=== PATIENT | female | born 1935 | race Caucasian/White ===

== ENCOUNTER 2016-11-26 09:09 | Outpatient (CLI) | payer MEDICARE, OTHER | END 2016-11-26 09:10 | disposition home or self-care (01) | DX: I50.9 Heart failure, unspecified (principal); E78.5 Hyperlipidemia, unspecified; I10 Essential (primary) hypertension ==

== ENCOUNTER 2016-12-15 11:56 | Outpatient (CLI) | payer MEDICARE, OTHER | END 2016-12-15 11:57 | disposition home or self-care (01) | DX: M47.816 Spondylosis without myelopathy or radiculopathy, lumbar region (principal); M51.26 Other intervertebral disc displacement, lumbar region; M43.16 Spondylolisthesis, lumbar region ==

== ENCOUNTER 2017-07-12 09:46 | Outpatient (CLI) | payer MEDICARE, OTHER ==
[2017-07-12 18:26] LABS: ALBUMIN/GLOBULIN RATIO 1.3 (1.0-2.2); BILIRUBIN,TOTAL 0.6 mg/dL (0.2-1.0); BUN - BLOOD UREA NITROGEN 43 mg/dL (6-20); CALCIUM 9.6 mg/dL (8.5-10.3); CARBON DIOXIDE - CO2 27 mmol/L (21-32); CHLORIDE 104 mmol/L (101-111); CHOL/HDL RATIO 5.2 (<4.4); CHOLESTEROL 277 mg/dL; CREATININE 1.4 mg/dL (0.4-1.0); GFR - MDRD 36 (>89); GLUCOSE 102 mg/dL (70-100); HDL CHOLESTEROL 53 mg/dL; LDL/HDL RATIO 3.7 (<4.4); SODIUM 140 mmol/L (135-145); TOTAL PROTEIN 7.2 g/dL (6.7-8.2); TRIGLYCERIDES 149 mg/dL; VLDL CHOLESTEROL 30 mg/dL
[2017-07-12 18:40] LABS: HEMOGLOBIN A1C 0.49 g/dL
== END 2017-07-12 09:47 | disposition home or self-care (01) ==
LOC: LAB.F 09:46
PROVIDERS: ATTEND Family Medicine
DX: R73.01 Impaired fasting glucose (principal); I50.9 Heart failure, unspecified; E78.5 Hyperlipidemia, unspecified; I10 Essential (primary) hypertension
CPT/HCPCS: 36415; 80053; 80061; 83036

== ENCOUNTER 2017-09-21 18:00 | Outpatient (CLI) | payer MEDICARE, OTHER | END 2017-09-21 18:01 | disposition EMS.NT | LOC: EMS 18:00 | PROVIDERS: ATTEND Surgery | DX: M79.646 Pain in unspecified finger(s) (principal); W18.30XA Fall on same level, unspecified, initial encounter; Y92.009 Unspecified place in unspecified non-institutional (private) residence as the place of occurrence of the external cause ==

== ENCOUNTER 2017-10-19 13:07 | Outpatient (CLI) | payer MEDICARE, OTHER ==
--- NOTE | 2017-10-20 17:59 | XRAY Report ---
DATE OF SERVICE: 10/19/2017 LEG LENGTH STUDY: 10/19/2017 CLINICAL INDICATION: Back pain. AP scanogram of the lower extremities was performed. The right upper leg measures 47.6 cm from acetabulum to tibial plateau, and the left upper leg measures 47.6 cm. The right lower leg, from tibial plateau to talar dome, measures 37.2 cm, and the left leg measures 36.4 cm. IMPRESSION: Approximately 1 cm leg length discrepancy in the lower legs, left shorter than right. TD: 10/20/2017 18:58
== END 2017-10-19 13:08 | disposition home or self-care (01) ==
LOC: DI 13:07
PROVIDERS: ATTEND Podiatrist
DX: M21.70 Unequal limb length (acquired), unspecified site (principal)
CPT/HCPCS: 77073

== ENCOUNTER 2018-07-15 15:33 | Outpatient (CLI) | payer MEDICARE, OTHER | END 2018-07-15 15:34 | disposition critical access hospital (66) | LOC: EMS 15:33 | PROVIDERS: ATTEND Surgery | DX: R53.1 Weakness (principal) | CPT/HCPCS: A0425; A0429 ==

== ENCOUNTER 2018-07-15 16:14 | Observation (INO) | payer MEDICARE, OTHER ==
--- NOTE | 2018-07-15 16:48 | ED Physician Documentation ---
PD HPI FOCAL NEURO - Stated complaint Stated Complaint: R L WEAKNESS/ NUMBNESS - Chief complaint Chief Complaint: Ext Problem - History obtained from History obtained from: Patient - History of Present Illness Timing - onset: Today Timing - duration: Days (1) Severity of deficit: Moderate Weakness: Leg, Right Associated symptoms: No: Headache, Nausea / vomiting, Seizure, Syncope, Fall, Head injury, Chest pain, Neck pain, Back pain Contributing factors: positive: Anticoagulated (h/o DVTs and PE's) Baseline status: positive: A&OX3, ambulatory, indep Similar symptoms before: Has not had sx before Recently seen: Not recently seen - Additional information Additional information: Patient states approximately 5 hours prior to arrival she felt her right leg not working as well as usual and had difficulty walking on it. States it has not improved and she is unable to lift the leg. No other complaints. Review of Systems Ten Systems: 10 systems reviewed and negative Constitutional: denies: Fever, Chills Ears: denies: Ear pain Throat: denies: Sore throat Cardiac: denies: Chest pain / pressure Respiratory: denies: Dyspnea, Cough, Wheezing GI: denies: Abdominal Pain, Nausea, Vomiting, Diarrhea Skin: denies: Rash Musculoskeletal: denies: Neck pain, Back pain Neurologic: denies: Numbness, Confused, Altered mental status, Headache PD PAST MEDICAL HISTORY - Past Medical History Cardiovascular: Congestive heart failure, Hypertension - Past Surgical History Ortho: Hip replacement, Knee replacement, Carpal Tunnel surgery - Present Medications Home Medications: Ambulatory Orders Medication Instructions Recorded Confirmed Acetaminophen 500 - 1,000 mg PO DAILY 02/04/16 07/15/18 Calcium Carbonate/Vitamin D3 1 tab PO DAILY 02/04/16 07/15/18 [Calcium 600 + Vit D3 400 Tab] Escitalopram [Lexapro] 10 mg PO DAILY 02/04/16 07/15/18 Furosemide [Lasix] 40 mg PO DAILY 02/04/16 07/15/18 Glucosam/Chondr-MSM#6/Manganes 1 cap PO BID 02/04/16 07/15/18 [Glucosamine-Chondroitin Sftgl] Losartan [Cozaar] 100 mg PO DAILY 02/04/16 07/15/18 Multivitamin [Multivitamins] 1 cap PO DAILY 02/04/16 07/15/18 Carvedilol 25 mg PO BID 07/15/18 07/15/18 - Allergies Allergies/Adverse Reactions: Allergies Allergy/AdvReac Type Severity Reaction Status Date / Time Penicillins Allergy Unknown Verified 07/15/18 16:24 vancomycin Allergy Unknown Verified 07/15/18 16:24 PD ED PE NORMAL - Vitals Vital signs reviewed: Yes - General General: Alert and oriented X 3, No acute distress - HEENT HEENT: Moist mucous membranes - Neck Neck: Supple, no meningeal sign - Cardiac Cardiac: RRR, Strong equal pulses - Respiratory Respiratory: No respiratory distress, Clear bilaterally - Abdomen Abdomen: Soft, Non tender, Non distended - Derm Derm: Warm and dry - Extremities Extremities: Other (1+ B LE edema) - Neuro Neuro: Alert and oriented X 3, 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, No sensory deficit, Normal speech - Psych Psych: Normal mood, Normal affect NIHSS - Time Time: 16:20 - Level of Consciousness Level of consciousness: (0) Alert, Keenly responsive LOC Questions: (0) Answers both Q's correct LOC Commands: (0) Performs both correctly - Gaze Best Gaze: (0) Normal - Visual Visual: (0) No loss - Facial Palsy Facial Palsy: (0) Normal, symmetrical movement - Motor Arms (both separate) Motor Arm (right): (0) No drift Motor Arm (left): (0) No drift - Motor Legs (both separate) Motor Leg (right): (2) Some effort against gravity Motor Leg (left): (0) No drift - Limb Ataxia Limb Ataxia: (0) Absent - Sensory Sensory: (0) Normal - Best Language Best Language: (0) No aphasia - Dysarthria Dysarthria: (0) Normal - Extinction and Inattention (formally neg Extinction and inattention: (0) No abnormality - Total Score/Results Total Score/Result: 2 Results - Vitals Vitals: Vital Signs - 24 hr 07/15/18 16:18 Temperature 36.6 C Heart Rate 66 Respiratory 14 Rate Blood Pressure 155/71 H O2 Saturation 96 Oxygen O2 Source Room air - EKG (time done) 1647 Rate: Rate (enter#) (65) Rhythm: NSR [place]: Normal Intervals: Normal MS QRS: Normal Ischemia: Normal ST segments - Rads (name of study) head CT Radiology: Prelim report reviewed, EMP read contemporaneously, See rad report (No acute intracranial abnormality) Duplex ultrasound right lower extremity Radiology: Prelim report reviewed, EMP read contemporaneously, See rad report (No DVT) PD MEDICAL DECISION MAKING - ED course Complexity details: reviewed results, re-evaluated patient, considered differential, d/w patient, d/w skin care consultant ED course: Patient is an 82-year-old female who presents to the emergency department with an inability to move the right leg. Concern for stroke. She is on Eliquis and was concerned of recurrent DVT, ultrasound is negative. Head CT is negative. No acute findings on laboratory testing. Discussed the case with Dr. Alvarenga, hospitalist who accepts. Will place her in observation for further evaluation and care. Possible TIA versus stroke? This document was made in part using voice recognition software. While efforts are made to proofread this document, sound alike and grammatical errors may occur. - Sepsis Event Vital Signs: Vital Signs - 24 hr 07/15/18 16:18 Temperature 36.6 C Heart Rate 66 Respiratory 14 Rate Blood Pressure 155/71 H O2 Saturation 96 Oxygen O2 Source Room air Departure - Departure Disposition: ED Place in Observation Clinical Impression: Right leg weakness Condition: Stable Discharge Date/Time: 07/15/18 20:50
[2018-07-15] MEDS ORDERED: IOPAMIDOL-300 100 ML VIAL ONE (16:52)
--- NOTE | 2018-07-15 17:16 | CT Report ---
Reason: RLE weakness Procedure Date: 07/15/2018 Accession Number: [id number] / [id number] Procedure: CT - Head W/O Stroke Protocol CPT Code: FULL RESULT: EXAM: CT HEAD EXAM DATE: 07/15/2018 05:06 PM. CLINICAL HISTORY: Right lower extremity weakness. Stroke protocol. COMPARISON: None. TECHNIQUE: Multiaxial CT images were obtained from the foramen magnum to the vertex. Reformats: Sagittal and coronal. IV contrast: None. In accordance with CT protocol optimization, one or more of the following dose reduction techniques were utilized for this exam: automated exposure control, adjustment of mA and/or KV based on patient size, or use of iterative reconstructive technique. FINDINGS: Parenchyma: No intraparenchymal hemorrhage. No evidence of mass, midline shift, or CT findings of acute infarction. Gutierrez-white differentiation is distinct. Extraaxial Spaces: Normal for age. No subdural or epidural collections identified. Ventricles: Normal in size and position. Sinuses and Orbits: Imaged paranasal sinuses, orbits, and mastoids show no significant abnormality. Bones: No evidence of fracture or calvarial defect. Other: None. IMPRESSION: Normal head CT. RADIA The call report notification system was initiated by Dr. Elmer Mckinney at 17:12 hrs on 07/15/18. The above findings were discussed with Supa Quintanilla by Dr. Elmer Mckinney at 17:15 hrs on 07/15/18.
[2018-07-15 17:38] LABS: BASOPHILS % (AUTO) 0.7 %; EOSINOPHILS # (AUTO) 0.2 10^3/uL (0.0-0.7); EOSINOPHILS % (AUTO) 2.5 %; HGB - HEMOGLOBIN 11.9 g/dL (12.0-16.0); LYMPHOCYTES # (AUTO) 1.6 10^3/uL (1.5-3.5); MEAN CORPUSCULAR HEMOGLOBIN 29.3 pg (27.0-31.0); MEAN CORPUSCULAR HGB CONC 33.7 g/dL (32.0-36.0); MEAN CORPUSCULAR VOLUME 86.9 fL (81.0-99.0); MEAN PLATELET VOLUME 7.1 fL (7.9-10.8); MONOCYTES # (AUTO) 0.7 10^3/uL (0.0-1.0); MONOCYTES % (AUTO) 9.2 %; NEUTROPHILS # (AUTO) 4.7 10^3/uL (1.5-6.6); NEUTROPHILS % (AUTO) 65.6 %; PLT - PLATELET COUNT 247 10^3/uL (130-450); RED BLOOD COUNT 4.05 10^6/uL (4.20-5.40); RED CELL DISTRIBUTION WIDTH 14.1 % (12.0-15.0); WHITE BLOOD COUNT 7.2 x10^3/uL (4.8-10.8)
[2018-07-15 17:51] LABS: ALBUMIN 3.8 g/dL (3.2-5.5); ALBUMIN/GLOBULIN RATIO 1.1 (1.0-2.2); BILIRUBIN,TOTAL 0.6 mg/dL (0.2-1.0); CALCIUM 9.1 mg/dL (8.5-10.3); CREATININE 1.4 mg/dL (0.4-1.0); TOTAL PROTEIN 7.3 g/dL (6.7-8.2)
--- NOTE | 2018-07-15 19:05 | Ultrasound Report ---
Reason: R LE swelling, h/o DVT Procedure Date: 07/15/2018 Accession Number: [id number] / [id number] Procedure: US - Duplex Ext Veins Right CPT Code: FULL RESULT: EXAM: RIGHT LOWER EXTREMITY VENOUS ULTRASOUND EXAM DATE: 07/15/2018 06:48 PM. CLINICAL HISTORY: Right lower extremity swelling, history of DVT. COMPARISON: Duplex extremity veins, right 10/11/2015 10:15 AM. TECHNIQUE: Real-time sonographic vascular imaging was performed by the vehicle insurance agent through the lower extremity utilizing both color-flow and Doppler spectral analysis. Multiple entry level sales representative static images were saved for review. FINDINGS: Common Femoral Vein (CFV): Normal. CFV-GSV Junction: Normal. Profunda Femoral Vein (PFV): Normal. Femoral Vein (FV) Prox: Normal. Femoral Vein (FV) Mid: Normal. Femoral Vein (FV) Dist: Normal. Popliteal Vein: Normal. Posterior Tibial Veins: Normal. Peroneal Veins: Normal. Contralateral Side CFV: Normal. Other: Mild edema. IMPRESSION: No evidence for deep venous thrombosis. RADIA
[2018-07-15] MEDS ORDERED: IBUPROFEN 600 MG TABLET PO PRN (20:04)
[2018-07-15] MEDS ORDERED: ONDANSETRON 4 MG/2 ML VIAL IVP PRN (20:04)
[2018-07-15] MEDS ORDERED: SODIUM CHLORIDE FLUSH 0.9% 10 ML SYRINGE IVP PRN (20:04)
--- NOTE | 2018-07-15 20:16 | HISTORY & PHYSICAL EXAMINATION ---
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 The patient states that her weakness has progressed over the last month. She states that she has been feeling weaker and weaker and having increasing trouble ge tting out of her chair. The patient states that she uses a walker at home and previously she was able to get up out of a chair without much assistance and get up and use her walker. She states that over the last month slowly she is gotten to a point where she is having to put her chair up against a wall to get increased leverage to help herself up into a walker. The patient states that things came to ahead today at around 11 AM when she states that her right leg was extremely weak and painful. She states that she was able to get up and use the walker but felt as though she was going to collapse onto her right side. She states that she has chronic low back and neck pain from arthritis. She states that the right leg was so weak she could not even lifted off the ground and finally she decided to come into the emergency department. The patient denies any other focal neurologic deficits. She denies any numbness or tingling in her right leg. She does admit to pain in the right leg which has been worsening throughout the day today. The patient also states that she has bilateral lower extremity edema. Patient denies any headaches, blurred vision, runny nose, sore throat, nasal c ongestion, difficulty swallowing, chest pain, cough, fevers, chills, palpitations, shortness of air, orthopnea, PND, abdominal pain, nausea, vomiting, diarrhea, constipation, urinary urgency, urinary frequency, dysuria, hair loss, skin rashes, polyuria, polydipsia, night sweats, difficulties with he r speech, difficulty swallowing or any facial droop. On presentation to the emergency department the patient was afebrile and hypertensive with blood pressure of 155/71 and otherwise had no respiratory distress. The patient states that her blood pressure has been elevated over the last few weeks as she has had increasing pain at home. The patient states that she takes Tylenol for pain at home as she has been told not to take any NSAIDs due to being on Eliquis. She states that Tylenol is just not cutting it for her pain anymore. The patient did undergo routine labs in the emergency department which showed a mildly elevated INR of 1.5 and a creatinine of 1.4 which is near her baseline. The patient had a negative UA and unremarkable CBC. The patient did undergo a venous duplex of the right lower extremity given her recent history of DVT and swelling in that right leg with pain. The patient's Doppler ultrasound showed no evidence of DVT. The patient also underwent a CT of her head given the localized right lower extremity weakness which was a normal CT head. Given the patient's multiple risk factors for stroke including obesity, hypertension, age and hyperlipidemia the patient was placed in observation for further workup for possible stroke. History - Past Medical History Cardiovascular: reports: Congestive heart failure, Hypertension, High cholesterol, Other (Morbid obesity) Respiratory: reports: Other (Pulmonary embolism) : reports: Renal insuffiency (Chronic kidney disease stage III) Psych: reports: Depression, Anxiety Musculoskeletal: reports: Osteoarthritis, Other (DVT bilateral lower extremiti es) MRSA Hx?: No Other Past Medical History: blood clots in legs and lungs in March 2018 - Past Surgical History Ortho: reports: Hip replacement, Knee replacement, Carpal Tunnel surgery - Family & Social History Family History: Mother: , CVA/TIA, Father: , Cancer (Bladder cancer) Living arrangement: At home Living Situation: With spouse/s.o., With family Social History Notes: The patient lives in [place], [place] with her and her daughter who was recently come over from [place], [place] to help out with her mom and dad given their declining health. The patient is originally from [place], [place] and worked as a domestic travel consultant. She raised 2 children. Her and her moved out to the [place] area about 50 years ago and moved to [facility] 29 years ago. She has never been a smoker, does not drink alcohol and denies any illicit drug use. - POLST Patient has POLST: No POLST Status: Full Code Meds/Allgy - Home Medications Home Medications: Ambulatory Orders Medication Instructions Recorded Confirmed Acetaminophen 500 - 1,000 mg PO DAILY 02/04/16 07/15/18 Calcium Carbonate/Vitamin D3 1 tab PO DAILY 02/04/16 07/15/18 [Calcium 600 + Vit D3 400 Tab] Escitalopram [Lexapro] 10 mg PO DAILY 02/04/16 07/15/18 Furosemide [Lasix] 40 mg PO DAILY 02/04/16 07/15/18 Glucosam/Chondr-MSM#6/Manganes 1 cap PO BID 02/04/16 07/15/18 [Glucosamine-Chondroitin Sftgl] Losartan [Cozaar] 100 mg PO DAILY 02/04/16 07/15/18 Multivitamin [Multivitamins] 1 cap PO DAILY 02/04/16 07/15/18 Carvedilol 25 mg PO BID 07/15/18 07/15/18 - Allergies Allergies/Adverse Reactions: Allergies Allergy/AdvReac Type Severity Reaction Status Date / Time Penicillins Allergy Unknown Verified 07/15/18 16:24 vancomycin Allergy Unknown Verified 07/15/18 16:24 Review of Systems - Other Findings Other Findings: A comprehensive review of systems was performed the pertinent positives and negatives are stated above in the HPI and the remainder of the review of systems is negative. Prior Level of Functionality: Patient uses a walker at home but has been having more and more difficulty standing up from her seated position to get up to use the walker. She states her does most of the reimbursement specialist and her daughter helps with cleaning up the house. She is very limited in her activities of daily living but does bathe herself as she has a shower seat. She states that she has had multiple falls over the last year. She states that she did have a setback when she had her DVT and PE in March 2018 because she was told to decrease her activity as she was at risk of having further pulmonary emboli. The patient states that since then she is never been able to get as active as she normally is. She states that she is also gained a significant amount of weight. Exam - Vital Signs Reviewed Vital Signs: Yes Vital Signs: Vital Signs x48h Temp Pulse Resp BP Pulse Ox 07/15/18 20:11 73 18 163/57 H 97 10/06/18 18:49 71 16 167/69 H 98 07/15/18 16:18 36.6 C 66 14 155/71 H 96 - Physical Exam General Appearance: positive: No acute distress, Alert, Anxious Eyes Bilateral: positive: Normal inspection, PERRL, EOMI, No lid inflammation ENT: positive: ENT inspection nml, Pharynx nml, No signs of dehydration. negative: Purulent nasal drainage, Pharyngeal erythema, Oral lesions Neck: positive: Nml inspection, Thyroid nml, No JVD, Trachea midline. negative: Thyromegaly, Lymphadenopathy (R), Lymphadenopathy (L), Stiff neck, Carotid bruit, Tracheal deviation Respiratory: positive: Chest non-tender, No respiratory distress, Breath sounds nml. negative: Wheezes, Rales, Rhonchi Cardiovascular: positive: Regular rate & rhythm, No murmur, No gallop Peripheral Pulses: positive: 2+ Abdomen: positive: Non-tender, No organomegaly, Nml bowel sounds, No distention. negative: Guarding, Rebound, Hepatomegaly Back: positive: Nml inspection. negative: CVA tenderness (R), CVA tenderness (L) Skin: positive: Color nml, No rash, Warm, Dry. negative: Cyanosis, Pallor Extremities: positive: Non-tender, Full ROM, Nml appearance, Pedal edema (Bilateral lower extremity edema up to the knees) Neurologic/Psychiatric: positive: Oriented x3, CN's nml (2-12), Sensation nml, Mood/affect nml, Weakness (The patient has weakness in the right lower extremity with difficulty raising the leg against gravity. Her left lower extremity her strength is 5 out of 5 in the right lower extremity strength is 3 out of 5.). negative: Facial droop, Slurred/abnml speech Conclusion/Plan - Problem List (1) Right leg weakness Conclusion/Plan: Patient presented with right leg weakness. According to the patient this has been getting progressively worse over the last month. To the point today where she stated it felt as though she was trying to lift a concrete block when she was trying to move her foot while using a walker. The patient was able to stand up with the strength of her right leg however when lying down on a bed she is unable to lift her leg off the bed. There is a significant difference in the strength of her left leg versus her right leg. The patient has no other focal neurologic deficits. Given the patient's history of arthritis and chronic low back pain it is very likely that this weakness is neuropathic weakness. The patient is also having pain in that right leg which also goes with a neuropathic process. It is much less likely that the patient has had a stroke given that it is a localized weakness it appears to be localized to specific muscle group not loss of motor function of the entire leg. The patient however does have multiple risk factors for a stroke including her age, hypertension, obesity and hyperlipidemia. Given these risk factors it is felt that patient should undergo observation and workup for stroke. CT head was negative. Plan: Aspirin Lipitor CTA head and neck MRI brain Echo Lipid profile Tele Neurochecks PT eval Start patient on gabapentin tonight for neuropathic weakness and pain and monitor symptoms (2) History of pulmonary embolism Conclusion/Plan: Patient is a history of pulmonary embolism in March 2018 and is currently on Eliquis. Patient will be continued on her home dose of Eliquis at this time as she does not appear to be having any bleed on her CT head. (3) Hypertension Conclusion/Plan: The patient has a history of hypertension and blood pressure has been elevated for the last few weeks in conjunction with her having increasing pain in her right leg. The patient's blood pressure is elevated on presentation to the emergency department. The patient will be continued on her home antihypertensive medications, we will continue to monitor her blood pressure and titrate medications as needed. Qualifiers: Hypertension type: essential hypertension Qualified Code(s): I10 - Essential (primary) hypertension (4) Hyperlipidemia Conclusion/Plan: The patient has a history of hyperlipidemia and has not been able to tolerate statins in the past. Patient is willing to start a statin while she is hospitalized here and were working her up for possible stroke. We will check a lipid profile in the patient in the morning. Qualifiers: Hyperlipidemia type: unspecified Qualified Code(s): E78.5 - Hyperlipidemia, unspecified (5) CKD (chronic kidney disease) stage 3, GFR 30-59 ml/min Conclusion/Plan: Patient has chronic kidney disease stage III. Her creatinine is 1.4 on presentation which is near her baseline. Patient was initially given IV fluids but then stated she has a history of congestive heart failure therefore IV fluids were stopped. We will continue to monitor her creatinine Avoid nephrotoxic agents. We will recheck her creatinine in the morning and decide on whether to do a CT angiogram of her head and neck are not. (6) Osteoarthritis Conclusion/Plan: The patient has osteoarthritis of multiple joints but currently her pain is mostly in her neck and lower back. The patient takes Tylenol at home for the pain. The patient is not able to take NSAIDs due to being on Eliquis. For the time being we will continue the patient on Tylenol and we will be adding gabapentin for possible neuropathic pain. Patient will be seen by physical therapy in the morning and will be recommended for exercises. The patient appears to be quite debilitated and may benefit from home physical therapy. Qualifiers: Osteoarthritis location: multiple joints - Lab Results Lab results reviewed: Yes Fish Bones: 07/15/18 17:07/15/18: Other Lab Results: Laboratory Results WBC 7.2 x10^3/uL (4.8-10.8) 07/15/18: RBC 4.05 10^6/uL (4.20-5.40) L 07/15/18: Hgb 11.9 g/dL (12.0-16.0) L 07/15/18 17: Hct 35.2 % (37.0-47.0) L 07/15/18: MCV 86.9 fL (81.0-99.0) 07/15/18: MCH 29.3 pg (27.0-31.0) 07/15/18 17: MCHC 33.7 g/dL (32.0-36.0) 07/15/18: RDW 14.1 % (12.0-15.0) 07/15/18: Plt Count 247 10^3/uL (130-450) 07/15/18: MPV 7.1 fL (7.9-10.8) L 07/15/18: Neut # (Auto) 4.7 10^3/uL (1.5-6.6) 07/15/18: Lymph # (Auto) 1.6 10^3/uL (1.5-3.5) 07/15/18 17: [place] # (Auto) 0.7 10^3/uL (0.0-1.0) 10/06/18 17:27 Eos # (Auto) 0.2 10^3/uL (0.0-0.7) 07/15/18 17:27 Baso # (Auto) 0.0 10^3/uL (0.0-0.1) 07/15/18 17:27 Absolute Nucleated RBC 0.01 x10^3/uL 07/15/18 17:27 Nucleated RBC % 0.1 /100WBC 07/15/18 17:27 PT 16.2 secs (9.9-12.6) H 07/15/18 20:38 INR 1.5 (0.8-1.2) H 07/15/18 20:38 Sodium 140 mmol/L (135-145) 07/15/18 17:27 Potassium 3.8 mmol/L (3.5-5.0) 07/15/18 17:27 Chloride 100 mmol/L (101-111) L 07/15/18 17:27 Carbon Dioxide 30 mmol/L (21-32) 07/15/18 17:27 Anion Gap 10.0 (6-13) 07/15/18 17:27 BUN 35 mg/dL (6-20) H 07/15/18 17:27 Creatinine 1.4 mg/dL (0.4-1.0) H 07/15/18 17:27 Estimated GFR (MDRD) 36 (>89) L 07/15/18 17:27 Glucose 88 mg/dL (70-100) 07/15/18 17:27 Calcium 9.1 mg/dL (8.5-10.3) 07/15/18 17:27 Total Bilirubin 0.6 mg/dL (0.2-1.0) 07/15/18 17:27 AST 35 IU/L (10-42) 07/15/18 17:27 ALT 28 IU/L (10-60) 07/15/18 17:27 Alkaline Phosphatase 95 IU/L (42-121) 07/15/18 17:27 Total Protein 7.3 g/dL (6.7-8.2) 07/15/18 17:27 Albumin 3.8 g/dL (3.2-5.5) 07/15/18 17:27 Globulin 3.5 g/dL (2.1-4.2) 07/15/18 17:27 Albumin/Globulin Ratio 1.1 (1.0-2.2) 07/15/18 17:27 Lipase 32 U/L (22-51) 07/15/18 17:27 Urine Color YELLOW 07/15/18 21:45 Urine Clarity CLEAR (CLEAR) 07/15/18 21:45 Urine pH 6.0 PH (5.0-7.5) 07/15/18 21:45 Ur Specific [place] 1.010 (1.002-1.030) 07/15/18 21:45 Urine Protein NEGATIVE mg/dL (NEGATIVE) 07/15/18 21:45 Urine Glucose (UA) NEGATIVE mg/dL (NEGATIVE) 07/15/18 21:45 Urine Ketones NEGATIVE mg/dL (NEGATIVE) 07/15/18 21:45 Urine Occult Blood NEGATIVE (NEGATIVE) 07/15/18 21:45 Urine Nitrite NEGATIVE (NEGATIVE) 07/15/18 21:45 Urine Bilirubin NEGATIVE (NEGATIVE) 07/15/18 21:45 Urine Urobilinogen 0.2 (NORMAL) E.U./dL (NORMAL) 07/15/18 21:45 Ur Leukocyte Esterase NEGATIVE (NEGATIVE) 07/15/18 21:45 Ur Microscopic Review NOT INDICATED 07/15/18 21:45 Urine Culture Comments NOT INDICATED 07/15/18 21:45 - Diagnostic Imaging Results Diagnostic Imaging Results: positive: Final report reviewed Diagnostic Imaging Results Comments: CT head Impression: Normal head CT Venous duplex right lower extremity Impression: No evidence for deep venous thrombosis. Core Measures - Anticipated LOS I expect patient to be DC'd or transferred within 96 hours.: Yes - DVT/VTE - Prophylaxis VTE/DVT Device ordered at admit?: Yes
[2018-07-15 20:45] LABS: INR 1.5 (0.8-1.2); PT - PROTHROMBIN TIME 16.2 secs (9.9-12.6)
[2018-07-15] MEDS ORDERED: SODIUM CHLORIDE 0.9% 1,000 ML IV SCH (21:00)
[2018-07-15] MEDS ORDERED: ATORVASTATIN 40 MG TABLET PO SCH (21:00)
[2018-07-15 22:02] LABS: BILIRUBIN,URINE NEGATIVE (NEGATIVE); GLUCOSE, URINE (UA) NEGATIVE (NEGATIVE); KETONES,URINE (UA) NEGATIVE (NEGATIVE); LEUKOCYTE ESTERASE, URINE NEGATIVE (NEGATIVE); NITRITE,URINE NEGATIVE (NEGATIVE); OCCULT BLOOD,URINE NEGATIVE (NEGATIVE); PROTEIN,URINE NEGATIVE (NEGATIVE); UROBILINOGEN,URINE 0.2 (NORMAL) E.U./dL (NORMAL)
[2018-07-15 22:04] LABS: CLARITY,URINE CLEAR (CLEAR)
[2018-07-15] MEDS: ACETAMINOPHEN 325 MG TABLET PO PRN (22:10)
[2018-07-15] MEDS ORDERED: ARIPiprazole 5 MG TABLET PO SCH (23:30)
[2018-07-15] MEDS ORDERED: GABAPENTIN 300 MG CAPSULE PO SCH (23:30)
[2018-07-16] MEDS: NYSTATIN POWDER 15 GM TOP SCH ×2 (00:24→13:29)
[2018-07-16] MEDS: CARVEDILOL 12.5 MG TABLET PO SCH ×2 (00:25→09:01)
[2018-07-16] MEDS: APIXABAN 5 MG TABLET PO SCH ×2 (00:26→09:01)
[2018-07-16] MEDS: SODIUM CHLORIDE FLUSH 0.9% 10 ML SYRINGE IVP SCH ×2 (01:35→09:04)
[2018-07-16 05:09] LABS: BASOPHILS % (AUTO) 0.6 %; EOSINOPHILS # (AUTO) 0.1 10^3/uL (0.0-0.7); EOSINOPHILS % (AUTO) 2.2 %; HGB - HEMOGLOBIN 10.4 g/dL (12.0-16.0); LYMPHOCYTES # (AUTO) 1.7 10^3/uL (1.5-3.5); LYMPHOCYTES % (AUTO) 27.1 %; MEAN CORPUSCULAR HEMOGLOBIN 29.3 pg (27.0-31.0); MEAN CORPUSCULAR HGB CONC 33.3 g/dL (32.0-36.0); MEAN PLATELET VOLUME 7.1 fL (7.9-10.8); MONOCYTES # (AUTO) 0.7 10^3/uL (0.0-1.0); MONOCYTES % (AUTO) 10.5 %; NEUTROPHILS # (AUTO) 3.8 10^3/uL (1.5-6.6); NEUTROPHILS % (AUTO) 59.6 %; PLT - PLATELET COUNT 220 10^3/uL (130-450); RED BLOOD COUNT 3.54 10^6/uL (4.20-5.40); RED CELL DISTRIBUTION WIDTH 14.2 % (12.0-15.0); WHITE BLOOD COUNT 6.3 x10^3/uL (4.8-10.8)
[2018-07-16 05:25] LABS: ALBUMIN 3.1 g/dL (3.2-5.5); ALBUMIN/GLOBULIN RATIO 1.1 (1.0-2.2); BILIRUBIN,TOTAL 0.8 mg/dL (0.2-1.0); CALCIUM 8.5 mg/dL (8.5-10.3); CREATININE 1.2 mg/dL (0.4-1.0); TOTAL PROTEIN 5.8 g/dL (6.7-8.2)
[2018-07-16 05:30] LABS: CHOL/HDL RATIO 4.9 (<4.4); CHOLESTEROL 187 mg/dL; HDL CHOLESTEROL 38 mg/dL; LDL CHOLESTEROL,CALCULATED 118 mg/dL; LDL/HDL RATIO 3.1 (<4.4); VLDL CHOLESTEROL 31 mg/dL
[2018-07-16] MEDS ORDERED: PANTOPRAZOLE 40 MG TABLET PO SCH (07:00)
[2018-07-16] MEDS ORDERED: ASPIRIN 325 MG TABLET PO SCH (08:00)
[2018-07-16] MEDS ORDERED: POTASSIUM CHLORIDE 20 MEQ TABLET PO ONE (08:31)
[2018-07-16] MEDS ORDERED: ESCITALOPRAM 10 MG TABLET PO SCH (09:00)
[2018-07-16] MEDS ORDERED: POLYETHYLENE GLYCOL 3350 17 GM PACKET PO SCH (09:00)
[2018-07-16] MEDS ORDERED: LOSARTAN 50 MG TABLET PO SCH (09:00)
[2018-07-16] MEDS: ACETAMINOPHEN 325 MG TABLET PO PRN (12:39)
[2018-07-16] MEDS ORDERED: FUROSEMIDE 40 MG TABLET PO SCH (12:54)
[2018-07-16 15:42] VITALS: BP 117/41
--- NOTE | 2018-07-16 15:59 | Discharge Plan ---
Discharge Plan Disposition: Home Health Service Condition: Poor Prescriptions: Atorvastatin [Lipitor] 40 mg PO QPM #15 tablet Gabapentin [Neurontin] 300 mg PO QPM #10 capsule Diet: Regular Activity Restrictions: Activity as Tolerated Shower Restrictions: No (fall precaution) Instruction Topics: Atorvastatin tablets, Gabapentin capsules or tablets Additional Instructions or Follow Up instructions: You may follow up your PCP in one week, may have MRI of brain as out-pt. Gabapentin seems controlling your symptoms well, we prescribe for you. PT evaluated and treated for you. Home health PT is arranged for you. Should your symptoms return or worsen, you may present ER or call 911 for help Follow-Up Care: Home Health - PT No Smoking: If you smoke, Please STOP! Call for help. Follow-up with: Nataly Conde NP [Primary Care Provider] -
--- NOTE | 2018-07-16 16:09 | Ultrasound Report ---
Reason: stroke/TIA Procedure Date: 07/16/2018 Accession Number: [id number] / [id number] Procedure: US - Carotid Doppler Complete CPT Code: FULL RESULT: EXAM: BILATERAL CAROTID AND VERTEBRAL ARTERY DUPLEX DOPPLER ULTRASOUND. EXAM DATE: 07/16/2018 03:08 PM CLINICAL HISTORY: Stroke/transient ischemic attach. COMPARISON: Carotid ultrasound 06/15/2006. TECHNIQUE: Grayscale imaging, color Doppler, and duplex spectral Doppler were used to evaluate the carotid and vertebral arteries bilaterally. Static images were obtained. FINDINGS: Mild to moderate atherosclerotic calcification at the carotid bulb extending into the proximal internal and external carotid arteries on the right. Moderate atherosclerotic plaque on the left, greatest at the carotid bulb and also extending into the proximal internal and external carotid arteries. VELOCITIES (cm/sec): Right CCA mid: PSV 111 cm/sec CCA dist: PSV 124 cm/sec ICA prox: PSV 117 cm/sec, EDV 21 cm/sec ICA mid: PSV 113 cm/sec, EDV 17 cm/sec ICA dist: PSV 116 cm/sec, EDV 19 cm/sec ECA: PSV 187 cm/sec Vert: PSV 67 cm/sec ICA/CCA: 0.94 Left CCA mid: PSV 133 cm/sec CCA dist: PSV 110 cm/sec ICA prox: PSV 133 cm/sec, EDV 33 cm/sec ICA mid: PSV 116 cm/sec, EDV 19 cm/sec ICA dist: PSV 115 cm/sec, EDV 23 cm/sec ECA: PSV 188 cm/sec Vert: PSV 66 cm/sec ICA/CCA: 1.20 ICA diameter stenosis: Right: <50% by velocity and <70% by NASCET criteria. Left: <50% by velocity and <70% by NASCET criteria. IMPRESSION: 1. Moderate bilateral carotid atherosclerotic calcification. 2. Mildly elevated velocities within the left proximal internal carotid artery consistent with a 50-69% stenosis by velocity criteria. 3. No hemodynamically significant stenosis right carotid. 4. Antegrade bilateral vertebral arteries. General Recommendations: Stenosis =50% ICA - Follow-up ultrasound 6-12 months Stenosis <50% ICA - High Risk Patient with plaque - Follow-up ultrasound 1-2 years Normal Study but High Risk Patient - Follow-up ultrasound 3-5 years Management recommendations and diagnostic criteria are based on current IAC endorsed standards in Carotid Artery Stenosis: Grayscale and Doppler Ultrasound Diagnosis. Validated velocity measurements with angiographic measurements and velocity criteria are extrapolated from diameter data as defined by the Society of Radiologists in Ultrasound Consensus Conference Radiology 2003; 229;340-346. RADIA
--- NOTE | 2018-07-16 16:26 | DISCHARGE SUMMARY ---
Discharge Summary Discharge Date: 07/16/18 Discharging Provider: CORDERO Primary Care Provider: Dr. Conde Condition at Discharge: Poor Discharge Disposition: Home Health Service Discharge Facility Name: home - DIAGNOSES Admission Diagnoses: (1) Right leg weakness (2) History of pulmonary embolism (3) Hypertension (4) Hyperlipidemia (5) CKD (chronic kidney disease) stage 3, GFR 30-59 ml/min (6) Osteoarthritis Discharge Diagnoses with Status of Each Condition: (1) Right leg weakness after pt was given Gabapentin, pt's symptoms were much improved. Pt did not have other focus neurological deficit. CT of head was negative for stroke. Unfortunately [facility] did not have MRI service. pt is advise followup PCP for MRI of brain as out-pt. Home PT is arranged for pt per recommendation of PT. (2) History of pulmonary embolism continue home regimen, followup PCP (3) Hypertension stable, (4) Hyperlipidemia stable (5) CKD (chronic kidney disease) stage 3, GFR 30-59 ml/min improved, follow up PCP for management (6) Osteoarthritis stable. - HPI History of Present Illness: refer from Dr. Alvarenga's HPI for pt as the following: Patient is an 82-year-old female with a past medical history significant for morbid obesity, DVT/PE in March 2018 currently on Eliquis, osteoarthritis status post bilateral knee replacement and hip replacement as well as chronic pain in the neck and lower back, congestive heart failure, chronic kidney disease stage III, hyperlipidemia, hypertension and carpal tunnel syndrome who presented to the emergency department with a chief complaint of right leg weakness. The patient states that her weakness has progressed over the last month. She states that she has been feeling weaker and weaker and having increasing trouble getting out of her chair. The patient states that she uses a walker at home and previously she was able to get up out of a chair without much assistance and get up and use her walker. She states that over the last month slowly she is gotten to a point where she is having to put her chair up against a wall to get increased leverage to help herself up into a walker. The patient states that things came to ahead today at around 11 AM when she states that her right leg was extremely weak and painful. She states that she was able to get up and use the walker but felt as though she was going to collapse onto her right side. She states that she has chronic low back and neck pain from arthritis. She states that the right leg was so weak she could not even lifted off the ground and finally she decided to come into the emergency department. The patient denies any other focal neurologic deficits. She denies any numbness or tingling in her right leg. She does admit to pain in the right leg which has been worsening throughout the day today. The patient also states that she has bilateral lower extremity edema. Patient denies any headaches, blurred vision, runny nose, sore throat, nasal congestion, difficulty swallowing, chest pain, cough, fevers, chills, palpitations, shortness of air, orthopnea, PND, abdominal pain, nausea, vomiting, diarrhea, constipation, urinary urgency, urinary frequency, dysuria, hair loss, skin rashes, polyuria, polydipsia, night sweats, difficulties with her speech, difficulty swallowing or any facial droop. On presentation to the emergency department the patient was afebrile and hypertensive with blood pressure of 155/71 and otherwise had no respiratory distress. The patient states that her blood pressure has been elevated over the last few weeks as she has had increasing pain at home. The patient states that she takes Tylenol for pain at home as she has been told not to take any NSAIDs due to being on Eliquis. She states that Tylenol is just not cutting it for her pain anymore. The patient did undergo routine labs in the emergency department which showed a mildly elevated INR of 1.5 and a creatinine of 1.4 which is near her baseline. The patient had a negative UA and unremarkable CBC. The patient did undergo a venous duplex of the right lower extremity given her recent history of DVT and swelling in that right leg with pain. The patient's Doppler ultrasound showed no evidence of DVT. The patient also underwent a CT of her head given the localized right lower extremity weakness which was a normal CT head. Given the patient's multiple risk factors for stroke including obesity, hypertension, age and hyperlipidemia the patient was placed in observation for further workup for possible stroke. - ALLERGIES Allergies/Adverse Reactions: Allergies Allergy/AdvReac Type Severity Reaction Status Date / Time Penicillins Allergy Unknown Verified 07/15/18 16:24 vancomycin Allergy Unknown Verified 07/15/18 16:24 - MEDICATIONS Home Medications: Ambulatory Orders Medication Instructions Recorded Confirmed Acetaminophen 500 - 1,000 mg PO DAILY 02/04/16 07/15/18 Calcium Carbonate/Vitamin D3 1 tab PO DAILY 02/04/16 07/15/18 [Calcium 600-Vit D3 400 Tablet] Escitalopram [Lexapro] 20 mg PO DAILY 02/04/16 07/16/18 Furosemide [Lasix] 40 mg PO DAILY 02/04/16 07/15/18 Glucosam/Chondr-MSM#6/Manganes 1 cap PO BID 02/04/16 07/15/18 [Glucosamine-Chondroitin Sftgl] Losartan [Cozaar] 50 mg PO DAILY 02/04/16 07/16/18 Multivitamin [Multivitamins] 1 cap PO DAILY 02/04/16 07/15/18 Carvedilol 25 mg PO BID 07/15/18 07/15/18 ARIPiprazole [Aripiprazole] 5 mg PO QPM 07/16/18 07/16/18 Apixaban [Eliquis] 5 mg PO BID 07/16/18 07/16/18 Atorvastatin [Lipitor] 40 mg PO QPM #15 tablet 07/16/18 Gabapentin [Neurontin] 300 mg PO QPM #10 capsule 07/16/18 - PHYSICAL EXAM AT DISCHARGE General Appearance: positive: No acute distress, Alert. negative: Lethargic Eyes Bilateral: positive: Normal inspection, PERRL, No lid inflammation, Conjunctivae nml ENT: positive: ENT inspection nml, Pharynx nml, No signs of dehydration. negative: Purulent nasal drainage, Pharyngeal erythema, Oral lesions Neck: positive: Nml inspection, Thyroid nml, No JVD, Trachea midline. negative: Thyromegaly, Lymphadenopathy (R), Lymphadenopathy (L), Stiff neck, Swelling /bruising, Tracheal deviation Respiratory: positive: Chest non-tender, No respiratory distress, Breath sounds nml. negative: Wheezes, Rales, Rhonchi Cardiovascular: positive: Regular rate & rhythm, No murmur, No gallop. negative: Irregularly irregular, Extrasystoles, Tachycardia, Bradycardia, JVD present, Systolic murmur, Diastolic murmur Peripheral Pulses: positive: 2+ Abdomen: positive: Non-tender, No organomegaly, Nml bowel sounds, No distention. negative: Tenderness, Guarding, Rebound Back: positive: Nml inspection. negative: CVA tenderness (R), CVA tenderness (L) Skin: positive: Color nml, No rash, Warm, Dry. negative: Cyanosis, Diaphoresis, Pallor Extremities: positive: Non-tender, Full ROM, Nml appearance. negative: No pedal edema, Pedal edema, Calf tenderness Neurologic/Psychiatric: positive: Oriented x3, Motor nml, Sensation nml, Mood/affect nml. negative: Weakness, Sensory loss, Facial droop, Slurred/abnml speech, Depressed mood/affect - LABS Result Diagrams: 07/16/18 04:45 07/16/18 04:45 - FOLLOW UP Follow Up: You may follow up your PCP in one week, may have MRI of brain as out-pt. Gabapentin seems controlling your symptoms well, we prescribe for you. PT evaluated and treated for you. Home health PT is arranged for you. Should your symptoms return or worsen, you may present ER or call 911 for help - TIME SPENT Time Spent in Discharge (Minutes): 45
[2018-07-16] MEDS ORDERED: GABAPENTIN 300 MG CAPSULE PO SCH (16:58)
[2018-07-17] MEDS ORDERED: FUROSEMIDE 40 MG TABLET PO SCH (09:00)
== END 2018-07-16 17:23 | disposition home health service (06) ==
LOC: EDUNIT# → ED 16:14 → MS2 20:05
PROVIDERS: ADMIT Internal Medicine; ATTEND Nurse Practitioner Gerontology
DX: M62.81 Muscle weakness (generalized) (principal); M79.604 Pain in right leg; I13.0 Hypertensive heart and chronic kidney disease with heart failure and stage 1 through stage 4 chronic kidney disease, or unspecified chronic kidney disease; N18.3 Chronic kidney disease, stage 3 (moderate); I50.9 Heart failure, unspecified; E78.5 Hyperlipidemia, unspecified; E66.01 Morbid (severe) obesity due to excess calories; G89.29 Other chronic pain; M47.9 Spondylosis, unspecified; M15.9 Polyosteoarthritis, unspecified; Z79.01 Long term (current) use of anticoagulants; Z86.718 Personal history of other venous thrombosis and embolism; Z86.711 Personal history of pulmonary embolism; Z79.899 Other long term (current) drug therapy; Z68.41 Body mass index [BMI] 40.0-44.9, adult; Z96.643 Presence of artificial hip joint, bilateral; Z96.653 Presence of artificial knee joint, bilateral; Z91.81 History of falling
CPT/HCPCS: 36415; 70450; 80053; 80061; 81003; 83690; 85025; 85610; 93005; 93306; 93880; 93971; 96360; 96361; 97162; 99284; 99285; A9270; G0378; G8978; G8979; G8980; 81001; 83721; 87086

== ENCOUNTER 2018-08-04 14:39 | Outpatient (CLI) | payer MEDICARE, OTHER ==
[2018-08-04 18:24] LABS: CALCIUM 9.3 mg/dL (8.5-10.3); CREATININE 1.1 mg/dL (0.4-1.0)
== END 2018-08-04 14:40 | disposition home or self-care (01) ==
LOC: LAB.F 14:39
PROVIDERS: ATTEND Internal Medicine Cardiovascular Disease
DX: I50.33 Acute on chronic diastolic (congestive) heart failure (principal)
CPT/HCPCS: 36415; 80048; 83880

== ENCOUNTER 2018-08-18 13:18 | Outpatient (CLI) | payer MEDICARE, OTHER ==
[2018-08-18 18:39] LABS: ALBUMIN 4.1 g/dL (3.2-5.5); BILIRUBIN,DIRECT 0.1 mg/dL (0.1-0.5); BILIRUBIN,TOTAL 0.8 mg/dL (0.2-1.0); TOTAL PROTEIN 7.3 g/dL (6.7-8.2)
== END 2018-08-18 13:19 | disposition home or self-care (01) ==
LOC: LAB.F 13:18
PROVIDERS: ATTEND Nurse Practitioner
DX: I50.33 Acute on chronic diastolic (congestive) heart failure (principal); R79.89 Other specified abnormal findings of blood chemistry
CPT/HCPCS: 36415; 80048; 80076

== ENCOUNTER 2018-10-04 14:37 | Outpatient (CLI) | payer MEDICARE, OTHER ==
[2018-10-04 17:41] LABS: HGB - HEMOGLOBIN 11.7 g/dL (12.0-16.0); MEAN CORPUSCULAR HEMOGLOBIN 29.2 pg (27.0-31.0); MEAN CORPUSCULAR VOLUME 91.2 fL (81.0-99.0); MEAN PLATELET VOLUME 7.1 fL (7.9-10.8); RED BLOOD COUNT 4.02 10^6/uL (4.20-5.40); RED CELL DISTRIBUTION WIDTH 15.7 % (12.0-15.0); WHITE BLOOD COUNT 8.7 x10^3/uL (4.8-10.8)
[2018-10-04 18:04] LABS: ALBUMIN 3.8 g/dL (3.2-5.5); CALCIUM 9.2 mg/dL (8.5-10.3); CREATININE 0.9 mg/dL (0.4-1.0); PHOSPHORUS 3.7 mg/dL (2.5-4.6); URIC ACID 5.6 mg/dL (2.6-7.2)
[2018-10-04 18:08] LABS: CREATININE,URINE 27.6 mg/dL; PROTEIN/CREATININE RATIO,URINE 0.4 (<=0.2)
== END 2018-10-04 14:38 | disposition home or self-care (01) ==
LOC: LAB.F 14:37
PROVIDERS: ATTEND Internal Medicine Nephrology
DX: N17.9 Acute kidney failure, unspecified (principal)
CPT/HCPCS: 36415; 80069; 82306; 82570; 83970; 84156; 84550; 85027

== ENCOUNTER 2020-07-29 08:00 | Outpatient (CLI) | payer MEDICARE, OTHER ==
[2020-07-30 17:44] LABS: BILIRUBIN,URINE NEGATIVE (NEGATIVE); GLUCOSE, URINE (UA) NEGATIVE (NEGATIVE); KETONES,URINE (UA) NEGATIVE (NEGATIVE); LEUKOCYTE ESTERASE, URINE NEGATIVE (NEGATIVE); NITRITE,URINE NEGATIVE (NEGATIVE); OCCULT BLOOD,URINE NEGATIVE (NEGATIVE); PH,URINE 5.5 PH (5.0-7.5); PROTEIN,URINE NEGATIVE (NEGATIVE); UROBILINOGEN,URINE 0.2 (NORMAL) E.U./dL (NORMAL)
[2020-07-30 17:50] LABS: CLARITY,URINE CLEAR (CLEAR)
[2020-07-30 17:51] LABS: BACTERIA,URINE None Seen /HPF (None Seen); RBC,URINE None Seen /HPF (0-5); SQUAMOUS EPITHELIAL CELL,UR MOD Squamous (<= Few)
[2020-07-30 18:32] LABS: CREATININE,URINE 83.9 mg/dL
[2020-07-30 19:33] LABS: TOTAL PROTEIN,URINE TIMED < 6 mg/dL
== END 2020-07-29 23:59 | disposition home or self-care (01) ==
LOC: LAB.R 08:00
PROVIDERS: ATTEND Internal Medicine Nephrology
DX: N18.31 Chronic kidney disease, stage 3a (principal); R80.9 Proteinuria, unspecified
CPT/HCPCS: 81001; 82570; 84156; 87086

== ENCOUNTER 2020-07-29 15:30 | Outpatient (CLI) | payer MEDICARE, OTHER ==
[2020-07-29 19:57] LABS: HGB - HEMOGLOBIN 12.9 g/dL (12.0-16.0); MEAN CORPUSCULAR HEMOGLOBIN 30.5 pg (27.0-31.0); MEAN CORPUSCULAR VOLUME 95.3 fL (81.0-99.0); MEAN PLATELET VOLUME 9.5 fL (7.9-10.8); RED BLOOD COUNT 4.23 10^6/uL (4.20-5.40); RED CELL DISTRIBUTION WIDTH 14.2 % (12.0-15.0); WHITE BLOOD COUNT 7.2 x10^3/uL (4.8-10.8)
[2020-07-29 20:14] LABS: ALBUMIN 3.8 g/dL (3.2-5.5); URIC ACID 7.9 mg/dL (2.6-7.2)
== END 2020-07-29 15:31 | disposition home or self-care (01) ==
LOC: LAB.S 15:30
PROVIDERS: ATTEND Internal Medicine Nephrology
DX: R80.9 Proteinuria, unspecified (principal); N18.31 Chronic kidney disease, stage 3a
CPT/HCPCS: 36415; 80069; 83970; 84550; 85027

== ENCOUNTER 2021-02-27 14:48 | Outpatient (CLI) | payer MEDICARE ==
[2021-02-27 20:36] LABS: CALCIUM 9.4 mg/dL (8.5-10.3); CREATININE 1.1 mg/dL (0.4-1.0); CRP - C-REACTIVE PROTEIN 1.8 mg/dL (0-1.0); POTASSIUM 4.1 mmol/L (3.5-5.0)
== END 2021-02-27 14:49 | disposition home or self-care (01) ==
LOC: LAB.S 14:48
PROVIDERS: ATTEND Nurse Practitioner
DX: M25.50 Pain in unspecified joint (principal); Z79.52 Long term (current) use of systemic steroids; R70.0 Elevated erythrocyte sedimentation rate
CPT/HCPCS: 36415; 80048; 85651; 86140

== ENCOUNTER → 2021-05-07 | Outpatient (CLI) | payer MEDICARE ==
[2021-05-13 09:55] LABS: FECAL OCCULT BLOOD (FIT) NEGATIVE (NEGATIVE)
== END ==
LOC: LAB.R 11:30
PROVIDERS: ATTEND Nurse Practitioner
DX: R19.7 Diarrhea, unspecified (principal)
CPT/HCPCS: 82274

== ENCOUNTER 2021-05-15 11:30 | Outpatient (CLI) | payer MEDICARE | END 2021-05-15 23:59 | disposition home or self-care (01) | LOC: LAB.R 11:30 | PROVIDERS: ATTEND Nurse Practitioner | DX: R19.7 Diarrhea, unspecified (principal) | CPT/HCPCS: 81599; 87329; 87493 ==

== ENCOUNTER 2021-05-27 10:29 | Outpatient (CLI) | payer MEDICARE ==
[2021-05-27 15:13] LABS: THYROID STIMULATING HORMONE 1.67 uIU/mL (0.34-5.60)
== END 2021-05-27 10:30 | disposition home or self-care (01) ==
LOC: LAB.S 10:29
PROVIDERS: ATTEND Nurse Practitioner
DX: K52.9 Noninfective gastroenteritis and colitis, unspecified (principal); E67.2 Megavitamin-B6 syndrome; E87.6 Hypokalemia
CPT/HCPCS: 36415; 82784; 83516; 84132; 84207; 84443; 86255

== ENCOUNTER 2021-07-03 14:21 | Outpatient (CLI) | payer MEDICARE ==
[2021-07-03 20:24] LABS: CREATININE 1.3 mg/dL (0.4-1.0); CRP - C-REACTIVE PROTEIN 1.1 mg/dL (0-1.0); POTASSIUM 4.2 mmol/L (3.5-5.0)
== END 2021-07-03 14:22 | disposition home or self-care (01) ==
LOC: LAB.S 14:21
PROVIDERS: ATTEND Internal Medicine Rheumatology
DX: R70.0 Elevated erythrocyte sedimentation rate (principal); Z79.52 Long term (current) use of systemic steroids
CPT/HCPCS: 36415; 80048; 85651; 86140

== ENCOUNTER 2021-11-20 10:42 | Outpatient (CLI) | payer MEDICARE ==
[2021-11-20 16:52] LABS: CHOL/HDL RATIO 3.6 (<4.4); CHOLESTEROL 210 mg/dL; HDL CHOLESTEROL 59 mg/dL; LDL CHOLESTEROL,CALCULATED 112 mg/dL; LDL/HDL RATIO 1.9 (<4.4); TRIGLYCERIDES 197 mg/dL; VLDL CHOLESTEROL 39 mg/dL
[2021-11-20 17:19] LABS: ESTIMATED AVERAGE GLUCOSE 131 mg/dL (70-100); HEMOGLOBIN A1c% 6.2 % (4.27-6.07)
== END 2021-11-20 10:43 | disposition home or self-care (01) ==
LOC: LAB.S 10:42
PROVIDERS: ATTEND Nurse Practitioner
DX: E11.21 Type 2 diabetes mellitus with diabetic nephropathy (principal); I50.32 Chronic diastolic (congestive) heart failure
CPT/HCPCS: 36415; 80061; 83036; 83721; 83880

== ENCOUNTER 2022-03-19 16:40 | Outpatient (CLI) | payer MEDICARE ==
[2022-03-19 20:54] LABS: CALCIUM 9.1 mg/dL (8.5-10.3); CREATININE 1.2 mg/dL (0.4-1.0); POTASSIUM 3.6 mmol/L (3.5-5.0)
== END 2022-03-19 16:41 | disposition home or self-care (01) ==
LOC: LAB.S 16:40
PROVIDERS: ATTEND Internal Medicine
DX: I50.32 Chronic diastolic (congestive) heart failure (principal)
CPT/HCPCS: 36415; 80048

== ENCOUNTER 2022-12-29 12:27 | Emergency (ER) | payer MEDICARE ==
--- NOTE | 2022-12-29 14:44 | ED Physician Documentation ---
History of Present Illness - Stated complaint Stated Complaint: DOUBLE VISION - Chief complaint Chief Complaint: Neuro - History obtained from History obtained from: Patient, Family - History of Present Illness Pain level max: 0 Pain level now: 0 - Additonal information Additional information: 87 year old female with vertical diploplia over the past 8 months. She states that her neuro-opthalmologist wants her to have an MRI but says that in [place] they can't schedule it for several weeks. She states that she was told to come to the emergency department to see if the MRI could be done today. She states that the diplopia has worsened over the past 2 weeks. Patient is currently on Eliquis. Has no other focal neurological deficits. No fevers. No trauma. No other complaints. Review of Systems Constitutional: denies: Fever, Chills Nose: denies: Rhinorrhea / runny nose, Congestion GI: denies: Vomiting, Diarrhea Skin: denies: Rash Musculoskeletal: denies: Neck pain, Back pain Neurologic: denies: Headache PD PAST MEDICAL HISTORY - Past Medical History Past Medical History: Yes Cardiovascular: Congestive heart failure, Hypertension, High cholesterol, Atrial fibrillation, Other Respiratory: Other Neuro: None Endocrine/Autoimmune: None GI: None [employer]: None : Renal insuffiency HEENT: None Psych: Depression, Anxiety Musculoskeletal: Osteoarthritis, Other Derm: None Other Past Medical History: USES WALKER WITH AMBULATION... - Past Surgical History Past Surgical History: Yes Ortho: Hip replacement, Knee replacement, Carpal Tunnel surgery - Present Medications Home Medications: Ambulatory Orders Medication Instructions Recorded Confirmed Acetaminophen 500 - 1,000 mg PO DAILY 02/04/16 12/29/22 Calcium Carbonate/Vitamin D3 1 tab PO DAILY 02/04/16 12/29/22 [Calcium 600-Vit D3 400 Tablet] Furosemide [Lasix] 60 mg PO DAILY 02/04/16 12/29/22 Glucosam/Chondr-Msm6/Manganese 1 cap PO BID 02/04/16 12/29/22 [Glucosamine-Chondroitin Sftgl] Losartan [Cozaar] 100 mg PO DAILY 02/04/16 12/29/22 Multivitamin [Multivitamins] 1 cap PO DAILY 02/04/16 12/29/22 carvediloL [Carvedilol] 6.25 mg PO BID 07/15/18 12/29/22 Apixaban [Eliquis] 5 mg PO BID 07/16/18 12/29/22 Gabapentin [Neurontin] 200 mg PO QPM 12/29/22 12/29/22 Potassium Chloride [Micro-K] 1 cap PO DAILY 12/29/22 12/29/22 Prednisone [Seb] 5 mg PO DAILY 12/29/22 12/29/22 Sertraline [Zoloft] 50 mg PO DAILY 12/29/22 12/29/22 - Allergies Allergies/Adverse Reactions: Allergies Allergy/AdvReac Type Severity Reaction Status Date / Time Penicillins Allergy Unknown Verified 07/15/18 16:24 vancomycin Allergy Unknown Verified 07/15/18 16:24 - Social History Does the pt smoke?: No Smoking Status: Never smoker Does the pt drink ETOH?: No Does the pt have substance abuse?: No - Immunizations Immunizations are current?: Yes - POLST Patient has POLST: No POLST Status: Full Code PD ED PE NORMAL - Vitals Vital signs reviewed: Yes - General General: Alert and oriented X 3, No acute distress - HEENT HEENT: PERRL, Moist mucous membranes - Neck Neck: Supple, no meningeal sign - Derm Derm: Warm and dry - Neuro Neuro: Alert and oriented X 3 Results - Vitals Vitals: Vital Signs - 24 hr 12/29/22 12/29/22 12/29/22 12:31 13:49 13:55 Temperature 36.7 C Heart Rate 100 Respiratory 19 17 17 Rate Blood Pressure 147/77 H O2 Saturation 98 12/29/22 12/29/22 12/29/22 14:20 14:30 14:50 Temperature Heart Rate 100 96 96 Respiratory 20 17 17 Rate Blood Pressure 147/74 H O2 Saturation 100 100 100 12/29/22 14:58 Temperature 36.6 C Heart Rate Respiratory Rate Blood Pressure O2 Saturation Oxygen O2 Source [With Activity] Room air O2 Source Room air PD Medical Decision Making - ED course Complexity details: considered differential, d/w patient ED course: Patient is here requesting an MRI for vertical diplopia. Has an outpatient MRI in [place] and is booked for several weeks. I spoke with the MRI department. They state that they do not have any room in their schedule today for an add on MRI. Radiology recommends that her neuro-prenatal genetic counselor fax an order to the diagnostic imaging department so that she can be scheduled urgently as an outpatient. Patient was informed that there is no MRI availability today at this facility. She will contact her neuro-prenatal genetic counselor to have an order sent to the hospital to be scheduled urgently for MRI. Patient counseled regarding signs and symptoms for which I believe and urgent re-evaluation would be necessary. Patient with good understanding of and agreement to plan and is comfortable going home at this time This document was made in part using voice recognition software. While efforts are made to proofread this document, sound alike and grammatical errors may occur. Departure - Departure Disposition: 01 Home, Self Care Clinical Impression: Diplopia Condition: Good Instructions: ED Double Vision Follow-Up: Nataly Conde NP [Primary Care Provider] - Comments: Please follow up with your neuro-prenatal genetic counselor for further care. An order for the MRI can be faxed to [phone] to have the MRI scheduled. This can be marked urgent on the order form by your doctor. Continue your current medications.
[2022-12-29 15:15] VITALS: BP 149/94
== END 2022-12-29 15:15 | disposition home or self-care (01) ==
LOC: ED 12:27
DX: H53.2 Diplopia (principal)
CPT/HCPCS: 99282; 99284

== ENCOUNTER 2023-01-01 16:18 | Outpatient (CLI) | payer MEDICARE ==
[~2023-01-01 16:18] MED LIST: GADOBUTROL 10 MMOL/10 ML VIAL ONE
[2023-01-01] MEDS ORDERED: GADOBUTROL 10 MMOL/10 ML VIAL IVP ONE (18:10)
--- NOTE | 2023-01-03 15:50 | MRI Report ---
PROCEDURE: MRI brain with and without contrast INDICATIONS: 87-year-old female with vertical diplopia CONTRAST: GADAVIST 10.0 ML TECHNIQUE: Noncontrast axial T1 spin echo, axial T2 fast spin echo, sagittal and axial FLAIR, coronal T2 fast sp in echo, axial gradient echo, axial diffusion and ADC through the brain. After the administration of contrast, axial and coronal T1 spin echo with fat saturation through the brain. COMPARISON: None. FINDINGS: Image quality: Excellent. CSF spaces: Basal cisterns are patent. No extra-axial fluid collections. Ventricles are normal in size and shape. Brain: No midline shift. The brainstem appears normal. Diffusion-weighted images demonstrate no in farct. Normal intravascular flow voids are present. Mild atrophy and white matter chronic ischemic change present. Quadrigeminal plate unremarkable. Enla rged perivascular spaces noted. Focal 2 to 3 mm nodular enhancement noted in the right frontal precentral gyrus and left inferior fro ntal orbital gyrus Skull and face: Calvarial marrow is normal in signal. Orbits appear normal. Sinuses: Sinuses and mastoids appear clear. IMPRESSION: Focal nodular enhancement in the right frontal precentral gyrus and left inferior frontal gyrus witho ut edema or mass effect. While these may reflect small vascular malformations, or metastatic disease would be a differential. Consider 3-6 month follow-up evaluation Mild atrophy and multifocal white matter chronic ischemic change Reviewed by: Nick Jean Baptiste MD on 01/03/2023 2:49 PM AKORESTES Approved by: Nick Jean Baptiste MD on 01/03/2023 2:49 PM AKDT Station ID: [id number]
--- NOTE | 2023-01-03 15:55 | MRI Report ---
PROCEDURE: MRI face/orbits with and without contrast INDICATIONS: 87-year-old female with vertical diplopia CONTRAST: GADAVIST 10.0 ML TECHNIQUE: Noncontrast sagittal T1 spin echo, axial FLAIR, axial gradient echo, axial diffusion and ADC acquired through the brain. Coronal STIR, thin-slice axial T1 spin echo through the orbits. After the admin istration of contrast, thin slice axial and coronal T1 spin echo with fat saturation through the orbi ts, axial T1 spin echo with fat saturation through the brain. COMPARISON: None. FINDINGS: Image quality: Excellent. Orbits: Globes are symmetrical. The optic nerves are normal in size, without abnormal signal or enh ancement. No retrobulbar masses or fat abnormalities. The extra-ocular muscles are normal and symme tric in appearance. Lacrimal glands are normal. Optic chiasm is normal. Periorbital soft tissues a ppear normal. Bilateral intraocular lens replacements noted CSF spaces: Ventricles are normal in size and shape. Basal cisterns are patent. No extra-axial flu id collections. Skull and face: Calvarial marrow is normal in signal. Sinuses: Sinuses and mastoids are clear. IMPRESSION: Bilateral intraocular lens replacements. Otherwise unremarkable MRI of the orbits. Additional findings in the brain noted on the dedicated MR brain report. Please refer to that report. Reviewed by: Nick Jean Baptiste MD on 01/03/2023 2:54 PM RAS Approved by: Nick Jean Baptiste MD on 01/03/2023 2:54 PM RAS Station ID: [id number]
== END 2023-01-01 16:19 | disposition home or self-care (01) ==
LOC: DI 16:18
PROVIDERS: ATTEND Psychiatry & Neurology Neurology
DX: R94.02 Abnormal brain scan (principal); G31.89 Other specified degenerative diseases of nervous system; I67.82 Cerebral ischemia; Z96.1 Presence of intraocular lens
CPT/HCPCS: 70543; 70553; A9585

== ENCOUNTER 2023-05-03 13:04 | Emergency (ER) | payer MEDICARE ==
--- NOTE | 2023-05-03 13:55 | ED Physician Documentation ---
PD HPI DYSPNEA - Stated complaint Stated Complaint: C+ - Chief complaint Chief Complaint: Resp - History obtained from History obtained from: Patient, Family - Additional information Additional information: 87-year-old female with history of congestive heart failure presents by private vehicle from home for shortness of breath. Patient states that she is always short of breath, however for the last 2 to 3 days she has felt more out of breath than usual. Her at home recently tested positive for COVID-19, and she reports a positive home test earlier today. At a walk-in clinic her ambulatory pulse ox dropped to the 80s and she was sent in for evaluation. Review of Systems Constitutional: denies: Fever, Chills, Myalgias, Fatigue Cardiac: denies: Chest pain / pressure, Palpitations, Calf pain Respiratory: reports: Dyspnea. denies: Cough, Wheezing Neurologic: denies: Generalized weakness, Focal weakness, Numbness PD PAST MEDICAL HISTORY - Past Medical History Cardiovascular: Congestive heart failure, Hypertension, High cholesterol, Atrial fibrillation, Other Respiratory: Other Neuro: None Endocrine/Autoimmune: None GI: None MASSAGE OPERATOR: None : Renal insuffiency HEENT: None Psych: Depression, Anxiety Musculoskeletal: Osteoarthritis, Other Derm: None - Past Surgical History Past Surgical History: Yes Ortho: Hip replacement, Knee replacement, Carpal Tunnel surgery - Present Medications Home Medications: Ambulatory Orders Medication Instructions Recorded Confirmed Acetaminophen 500 - 1,000 mg PO DAILY 02/04/16 12/29/22 Calcium Carbonate/Vitamin D3 1 tab PO DAILY 02/04/16 12/29/22 [Calcium 600-Vit D3 400 Tablet] Furosemide [Lasix] 60 mg PO DAILY 02/04/16 12/29/22 Glucosam/Chondr-Msm6/Manganese 1 cap PO BID 02/04/16 12/29/22 [Glucosamine-Chondroitin Sftgl] Losartan [Cozaar] 100 mg PO DAILY 02/04/16 12/29/22 Multivitamin [Multivitamins] 1 cap PO DAILY 02/04/16 12/29/22 carvediloL [Carvedilol] 6.25 mg PO BID 07/15/18 12/29/22 Apixaban [Eliquis] 5 mg PO BID 07/16/18 12/29/22 Gabapentin [Neurontin] 200 mg PO QPM 12/29/22 12/29/22 Potassium Chloride [Micro-K] 1 cap PO DAILY 12/29/22 12/29/22 Prednisone [Seb] 5 mg PO DAILY 12/29/22 12/29/22 Sertraline [Zoloft] 50 mg PO DAILY 12/29/22 12/29/22 Albuterol Sulf [Ventolin Hfa 1 - 2 puffs INH Q4HR PRN #1 each 05/03/23 Inhaler] Doxycycline Hyclate 100 mg PO BID #10 tab 05/03/23 - Allergies Allergies/Adverse Reactions: Allergies Allergy/AdvReac Type Severity Reaction Status Date / Time Penicillins Allergy Unknown Verified 05/03/23 13:09 vancomycin Allergy Unknown Verified 05/03/23 13:09 - Social History Does the pt smoke?: No Smoking Status: Never smoker Does the pt drink ETOH?: No Does the pt have substance abuse?: No - Immunizations Immunizations are current?: Yes - POLST Patient has POLST: No POLST Status: Full Code PD ED PE NORMAL - Vitals Vital signs reviewed: Yes - General General: Alert and oriented X 3, No acute distress, Well developed/nourished - HEENT HEENT: Atraumatic - Cardiac Cardiac: RRR, Strong equal pulses - Respiratory Respiratory: No respiratory distress, Clear bilaterally - Abdomen Abdomen: Soft, Non tender - Back Back: No CVA TTP, No spinal TTP - Derm Derm: Normal color, Warm and dry, No rash - Extremities Extremities: No deformity, No tenderness to palpate, Normal ROM s pain, Other (trace pitting edema to mid-juárez bilaterally) - Neuro Neuro: Alert and oriented X 3, 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 Relevant findings are: Rate: Rate (enter#) (90) Rhythm: Atrial fibrillation [place]: Normal QRS: Normal Ischemia: Normal ST segments - Labs Labs: Laboratory Tests 05/03/23 05/03/23 05/03/23 14:05 14:05 14:05 WBC 8.5 RBC 4.04 L Hgb 12.4 Hct 38.4 MCV 95.0 MCH 30.7 MCHC 32.3 RDW 14.0 Plt Count 207 MPV 9.1 Neut # (Auto) 6.8 H Lymph # (Auto) 1.1 L [place] # (Auto) 0.6 Eos # (Auto) 0.0 Baso # (Auto) 0.0 Absolute Nucleated RBC 0.00 Nucleated RBC % 0.0 Sodium 138 Potassium 3.7 Chloride 97 L Carbon Dioxide 33 H Anion Gap 8.0 BUN 22 H Creatinine 1.3 Estimated GFR (MDRD) 39 L Glucose 163 H Calcium 9.3 Total Bilirubin 0.6 AST 21 ALT 13 Alkaline Phosphatase 69 Troponin I High Sens 17.9 H* B-Natriuretic Peptide Total Protein 6.9 Albumin 3.8 Globulin 3.1 Albumin/Globulin Ratio 1.2 Lipase 14 Nasal Adenovirus (PCR) Nasal B. parapertussis DNA (PCR) Nasal Coronavir 229E PCR Nasal Coronavir HKU1 PCR Nasal Coronavir NL63 PCR Nasal Coronavir OC43 PCR Nasal Enterovir/Rhinovir PCR Nasal Influenza B PCR Nasal Influenza A PCR Nasal Parainfluen 1 PCR Nasal Parainfluen 2 PCR Nasal Parainfluen 3 PCR Nasal Parainfluen 4 PCR Nasal RSV (PCR) Nasal B.pertussis DNA PCR Nasal C.pneumoniae (PCR) [place] Human Metapneumo PCR Nasal M.pneumoniae (PCR) Nasal SARS-CoV-2 (PCR) 05/03/23 05/03/23 14:05 15:10 WBC RBC Hgb Hct MCV MCH MCHC RDW Plt Count MPV Neut # (Auto) Lymph # (Auto) [place] # (Auto) Eos # (Auto) Baso # (Auto) Absolute Nucleated RBC Nucleated RBC % Sodium Potassium Chloride Carbon Dioxide Anion Gap BUN Creatinine Estimated GFR (MDRD) Glucose Calcium Total Bilirubin AST ALT Alkaline Phosphatase Troponin I High Sens B-Natriuretic Peptide 444 H Total Protein Albumin Globulin Albumin/Globulin Ratio Lipase Nasal Adenovirus (PCR) NOT DETECTED Nasal B. parapertussis DNA (PCR) NOT DETECTED Nasal Coronavir 229E PCR NOT DETECTED Nasal Coronavir HKU1 PCR NOT DETECTED Nasal Coronavir NL63 PCR NOT DETECTED Nasal Coronavir OC43 PCR NOT DETECTED Nasal Enterovir/Rhinovir PCR NOT DETECTED Nasal Influenza B PCR NOT DETECTED Nasal Influenza A PCR NOT DETECTED Nasal Parainfluen 1 PCR NOT DETECTED Nasal Parainfluen 2 PCR NOT DETECTED Nasal Parainfluen 3 PCR NOT DETECTED Nasal Parainfluen 4 PCR NOT DETECTED Nasal RSV (PCR) NOT DETECTED Nasal B.pertussis DNA PCR NOT DETECTED Nasal C.pneumoniae (PCR) NOT DETECTED [place] Human Metapneumo PCR NOT DETECTED Nasal M.pneumoniae (PCR) NOT DETECTED Nasal SARS-CoV-2 (PCR) DETECTED A PD Medical Decision Making - ED course Complexity details: reviewed old records, reviewed results, re-evaluated patient, considered differential, d/w patient ED course: Acute on chronic dyspnea with recent positive Covid19 test. Lungs clear to auscultation. CT of the chest shows groundglass infiltrates concerning for infectious versus inflammatory process. BNP is mildly elevated, however with increased neutrophil count suspect more of an infectious process. Patient did test positive for COVID-19. While resting comfortably in bed patient's room oxygen saturations are 95% or higher, however nurse reports that with even minimal exertion such as standing up her saturations dropped to the 80s. Shared decision-making was had with patient. I recommended admission for treatment as the patient is elderly and is requiring oxygen for movement. Patient states that she is extremely reluctant to leave her at home because he is 89 years old and lives by himself. She states that she does not want to be parted from him and if a situation can be worked out where she can go home she would prefer to do that. I was able to speak with respiratory therapy. Patient was evaluated by respiratory therapy, who ambulated the patient in the hallways and closely monitored saturations. RT noted that patient's O2 never dropped below 91 even after ambulating in the hallways. Patient's care discussed extensively with patient and daughter. We will send antibiotics to pharmacy as well as albuterol inhaler. They are in agreement. They were strongly advised that if patient worsens or does not improve with medications that she be brought back to the ER for repeat evaluation. Departure - Departure Disposition: 01 Home, Self Care Clinical Impression: Pneumonia, COVID Condition: Stable Instructions: Oxygen Home Use, ED Pneumonia Adult Prescriptions: Albuterol Sulf [Ventolin Hfa Inhaler] 1 - 2 puffs INH Q4HR PRN #1 each PRN Reason: Shortness Of Air/Wheezing Doxycycline Hyclate 100 mg PO BID #10 tab Comments: DOXYCYCLINE AND ALBUTEROL HAVE BEEN SENT TO [facility] Forms: PCP List Discharge Date/Time: 05/03/23 19:16
--- NOTE | 2023-05-03 14:10 | XRAY Report ---
PROCEDURE: Chest 1 View X-Ray INDICATIONS: DYSPNEA, C19+ TECHNIQUE: One view of the chest was acquired. COMPARISON: Chest x-ray 10/15/2014 FINDINGS: Surgical changes and devices: None. Lungs and pleura: Mild appearance of increased interstitial prominence Mediastinum: Mediastinal contours appear normal. Heart size is enlarged. Bones and chest wall: No suspicious bony lesions. Overlying soft tissues appear unremarkable. IMPRESSION: Cardiomegaly with increased interstitial prominence. The latter could be related to edema versus pneu monia. Reviewed by: Azra Anglin MD on 05/03/2023 2:08 PM PDT Approved by: Azra Anglin MD on 05/03/2023 2:08 PM PDT Station ID: [id number]
[2023-05-03 14:21] LABS: BASOPHILS % (AUTO) 0.4 %; EOSINOPHILS % (AUTO) 0.1 %; HCT - HEMATOCRIT 38.4 % (37.0-47.0); HGB - HEMOGLOBIN 12.4 g/dL (12.0-16.0); LYMPHOCYTES # (AUTO) 1.1 10^3/uL (1.5-3.5); LYMPHOCYTES % (AUTO) 12.3 %; MEAN CORPUSCULAR HEMOGLOBIN 30.7 pg (27.0-31.0); MEAN CORPUSCULAR HGB CONC 32.3 g/dL (32.0-36.0); MEAN PLATELET VOLUME 9.1 fL (7.9-10.8); MONOCYTES # (AUTO) 0.6 10^3/uL (0.0-1.0); MONOCYTES % (AUTO) 6.9 %; NEUTROPHILS # (AUTO) 6.8 10^3/uL (1.5-6.6); NEUTROPHILS % (AUTO) 79.9 %; PLT - PLATELET COUNT 207 10^3/uL (130-450); RED BLOOD COUNT 4.04 10^6/uL (4.20-5.40); WHITE BLOOD COUNT 8.5 x10^3/uL (4.8-10.8)
[2023-05-03 14:43] LABS: ALBUMIN 3.8 g/dL (3.2-5.5); ALBUMIN/GLOBULIN RATIO 1.2 (1.0-2.2); BILIRUBIN,TOTAL 0.6 mg/dL (0.2-1.0); CALCIUM 9.3 mg/dL (8.5-10.3); CREATININE 1.3 mg/dL (0.6-1.3); POTASSIUM 3.7 mmol/L (3.5-4.5); TOTAL PROTEIN 6.9 g/dL (6.4-8.9)
[2023-05-03] MEDS ORDERED: iohexoL-300 100 ML VIAL ONE (14:53)
[2023-05-03] MEDS ORDERED: iohexoL-300 100 ML VIAL IVP ONE (15:15)
--- NOTE | 2023-05-03 15:48 | CT Report ---
PROCEDURE: ANGIO CHEST W/WO INDICATIONS: dyspnea, ambulatory hypoxia CONTRAST: 80ml Omni 300 TECHNIQUE: After the administration of intravenous contrast, 2 mm axial images were acquired from the pulmonary apices to the posterior costophrenic angles during the arterial phase. In addition, 1 mm lung kernel and 5 mm soft tissue kernel reconstructions were performed. 3-dimensional coronal oblique maximum int ensity projection (MIP) reformats, 8 mm axial MIP, and 5 mm coronal and sagittal MPR reformats were t hen performed through the thorax. For radiation dose reduction, the following was used: automated exp osure control, adjustment of mA and/or kV according to patient size. COMPARISON: None FINDINGS: Image quality: Mildly motion degraded Lungs and pleura:Mild scattered groundglass opacities and atelectasis at the bases. Groundglass opaci ty most notable in the posterior portion of the right upper lobe. No pleural effusions. Mediastinum, heart, and esophagus: Distal pulmonary arteries are not well seen. There is no central p ulmonary embolism. Aorta is not well opacified on this study. There are atherosclerotic calcification s. No pathologic lymph nodes by size criteria. Annular and coronary heart calcifications. Chest wall and thyroid: Thyroid is unremarkable. Chest wall is unremarkable. Upper abdomen: Unremarkable on these limited arterial phase images. Bones: Degenerative changes, no acute or suspicious osseous finding. Age-indeterminate nondisplaced r ib deformities are present. IMPRESSION: No central pulmonary embolism. Distal arteries are not well seen due to motion artifact. Mild scattered groundglass opacities in the lungs, likely infectious/inflammatory. No drainable pleur al effusion. Consider future imaging surveillance to assess for resolution. Reviewed by: James Rebolledo MD on 05/03/2023 3:43 PM PDT Approved by: James Rebolledo MD on 05/03/2023 3:43 PM PDT Station ID: [id number]
[2023-05-03 16:23] LABS: B. PARAPERTUSSIS- RESP PCR PAN NOT DETECTED; B. PERTUSSIS- RESP PCR PANEL NOT DETECTED; C. PNEUMONIAE- RESP PCR PANEL NOT DETECTED; CORONAVIRUS 229E-RESP PCR NOT DETECTED; CORONAVIRUS HKU1-RESP PCR NOT DETECTED; CORONAVIRUS NL63-RESP PCR NOT DETECTED; CORONAVIRUS OC43-RESP PCR NOT DETECTED; HUMAN METAPNEUMOVIRUS NOT DETECTED; INFLUENZA A- RESP PCR PANEL NOT DETECTED; INFLUENZA B - RESP PCR PANEL NOT DETECTED; M. PNEUMONIAE- RESP PCR PANEL NOT DETECTED; PARAINFLUENZA VIRUS 1 NOT DETECTED; PARAINFLUENZA VIRUS 2 NOT DETECTED; PARAINFLUENZA VIRUS 3 NOT DETECTED; PARAINFLUENZA VIRUS 4 NOT DETECTED; RHINOVIRUS/ENTEROVIRUS NOT DETECTED; RSV- RESP PCR PANEL NOT DETECTED
[2023-05-03 16:26] LABS: SARS-CoV-2 -RESP PCR PANEL DETECTED
[2023-05-03] MEDS ORDERED: cefTRIAXone 2 GM in SODIUM CHLORIDE 0.9% MINIBAG 100 ML IV STA (16:28)
[2023-05-03] MEDS ORDERED: AZITHROMYCIN INJ 500 MG in SODIUM CHLORIDE 0.9% 250 ML IV STA (16:28)
[2023-05-03] MEDS ORDERED: ALBUTEROL NEB 2.5 MG/3 ML INH STA (17:43)
[2023-05-03] MEDS ORDERED: MOLNUPIRAVIR PREPACK PO STA (17:44)
[2023-05-03] MEDS ORDERED: ALBUTEROL 1 PUFF INH STA (17:55)
[2023-05-03 18:55] VITALS: BP 122/56
== END 2023-05-03 19:16 | disposition home or self-care (01) ==
LOC: ED 13:04
DX: U07.1 COVID-19 (principal); J18.9 Pneumonia, unspecified organism; I11.0 Hypertensive heart disease with heart failure; I50.9 Heart failure, unspecified; E78.00 Pure hypercholesterolemia, unspecified; I48.91 Unspecified atrial fibrillation; Z79.899 Other long term (current) drug therapy; Z79.01 Long term (current) use of anticoagulants
CPT/HCPCS: 36415; 71045; 71275; 80053; 83690; 83880; 84484; 85025; 87633; 93005; 94640; 94664; 96365; 96366; 96368; 99284; J3490; Q9967

== ENCOUNTER 2023-06-17 13:56 | Outpatient (CLI) | payer MEDICARE ==
[2023-06-17 20:08] LABS: ALBUMIN 4.1 g/dL (3.2-5.5); CALCIUM 9.6 mg/dL (8.5-10.3); PHOSPHORUS 3.8 mg/dL (2.5-5.0); POTASSIUM 3.6 mmol/L (3.5-4.5); URIC ACID 9.1 mg/dL (2.3-6.6)
[2023-06-17 20:16] LABS: CREATININE,URINE 26.3 mg/dL; PROTEIN/CREATININE RATIO,URINE 0.2 (<=0.2)
== END 2023-06-17 13:57 | disposition home or self-care (01) ==
LOC: LAB.S 13:56
PROVIDERS: ATTEND Internal Medicine Nephrology
DX: N18.32 Chronic kidney disease, stage 3b (principal)
CPT/HCPCS: 36415; 80069; 82570; 84156; 84550

== ENCOUNTER 2024-04-18 10:38 | Outpatient (CLI) | payer MEDICARE ==
[2024-04-18 15:00] LABS: BASOPHILS # (AUTO) 0.1 10^3/uL (0.0-0.1); BASOPHILS % (AUTO) 0.9 %; EOSINOPHILS # (AUTO) 0.2 10^3/uL (0.0-0.7); EOSINOPHILS % (AUTO) 2.1 %; HGB - HEMOGLOBIN 12.8 g/dL (12.0-16.0); LYMPHOCYTES # (AUTO) 1.7 10^3/uL (1.5-3.5); LYMPHOCYTES % (AUTO) 19.2 %; MEAN CORPUSCULAR HEMOGLOBIN 30.5 pg (27.0-31.0); MEAN CORPUSCULAR VOLUME 95.5 fL (81.0-99.0); MEAN PLATELET VOLUME 9.2 fL (7.9-10.8); MONOCYTES # (AUTO) 0.7 10^3/uL (0.0-1.0); MONOCYTES % (AUTO) 7.7 %; NEUTROPHILS # (AUTO) 6.3 10^3/uL (1.5-6.6); NEUTROPHILS % (AUTO) 69.9 %; PLT - PLATELET COUNT 265 10^3/uL (130-450); RED BLOOD COUNT 4.19 10^6/uL (4.20-5.40); RED CELL DISTRIBUTION WIDTH 14.1 % (12.0-15.0)
[2024-04-18 15:29] LABS: ALBUMIN 3.9 g/dL (3.2-5.5); ALBUMIN/GLOBULIN RATIO 1.4 (1.0-2.2); BILIRUBIN,TOTAL 0.5 mg/dL (0.2-1.0); CALCIUM 9.8 mg/dL (8.5-10.3); CREATININE 1.4 mg/dL (0.6-1.3); PHOSPHORUS 4.3 mg/dL (2.5-5.0); TOTAL PROTEIN 6.6 g/dL (6.4-8.9)
[2024-04-18 22:53] LABS: ESTIMATED AVERAGE GLUCOSE 128 mg/dL (70-100); HEMOGLOBIN A1c% 6.1 % (4.27-6.07)
== END 2024-04-18 10:39 | disposition home or self-care (01) ==
LOC: LAB.S 10:38
PROVIDERS: ATTEND Family Medicine
DX: E11.22 Type 2 diabetes mellitus with diabetic chronic kidney disease (principal); N18.32 Chronic kidney disease, stage 3b; R53.83 Other fatigue
CPT/HCPCS: 36415; 80053; 82306; 83036; 83970; 84100; 85025